=== PATIENT | male | born 1965 | race Caucasian/White ===

== ENCOUNTER 2017-09-19 17:03 | Emergency (ER) | payer OTHER ==
[~2017-09-19] VITALS: Ht 185.4 cm; Wt 72.6 kg
[2017-09-19 17:12] VITALS: BP 108/82
[2017-09-19] MEDS ORDERED: ACCUNEB SO1.25 MG/1 INH (17:14)
[2017-09-19] MEDS ORDERED: FLEXERIL PO (17:24)
[2017-09-19] MEDS ORDERED: NORCO 5-325 TA1 EACH PO (17:24)
== END 2017-09-19 17:37 | disposition home or self-care (01) ==
LOC: M.ERS 17:03
DX: S39.012A Strain of muscle, fascia and tendon of lower back, initial encounter (principal); X50.1XXA Overexertion from prolonged static or awkward postures, initial encounter; Y93.89 Activity, other specified; Y92.89 Other specified places as the place of occurrence of the external cause; Y99.8 Other external cause status; J45.909 Unspecified asthma, uncomplicated; Z88.6 Allergy status to analgesic agent; Z88.8 Allergy status to other drugs, medicaments and biological substances; Z88.7 Allergy status to serum and vaccine

== ENCOUNTER 2017-10-17 12:29 | Emergency (ER) | payer OTHER ==
[~2017-10-17] VITALS: Ht 185.4 cm; Wt 72.6 kg
[~2017-10-17 12:29] MED LIST: ACCUNEB SO1.25 MG/1 INH; FLEXERIL PO; NORCO 5-325 TA1 EACH PO
[2017-10-17] MEDS ORDERED: NORCO 5-325 TA1 EACH PO (13:39)
[2017-10-17] MEDS ORDERED: KEFLEX500 M1 PO (13:39)
[2017-10-17 13:55] VITALS: BP 129/86
== END 2017-10-17 13:56 | disposition home or self-care (01) ==
LOC: M.ERS 12:29
DX: M25.571 Pain in right ankle and joints of right foot (principal); R21 Rash and other nonspecific skin eruption; J45.909 Unspecified asthma, uncomplicated; Z88.7 Allergy status to serum and vaccine; Z88.8 Allergy status to other drugs, medicaments and biological substances

== ENCOUNTER 2019-04-26 12:33 | Emergency (ER) | payer OTHER, MEDICAID ==
[~2019-04-26] VITALS: Ht 185.4 cm; Wt 73.5 kg
[~2019-04-26 12:33] MED LIST changes: +KEFLEX500 M1 PO
[2019-04-26] MEDS ORDERED: ALBUTEROL2.5 MG/0.1 INH (12:52)
[2019-04-26] MEDS ORDERED: TRAMADOL 50 MG50 MG PO (12:52)
[2019-04-26] MEDS ORDERED: ZANAFLEX2 M1 PO (12:52)
[2019-04-26] MEDS ORDERED: TYLENOL WITH CO1 TA1 PO (13:39)
[2019-04-26 14:06] VITALS: BP 145/96
== END 2019-04-26 14:06 | disposition home or self-care (01) ==
LOC: M.ERS 12:33
DX: S63.501A Unspecified sprain of right wrist, initial encounter (principal); J45.909 Unspecified asthma, uncomplicated; Z88.7 Allergy status to serum and vaccine; Z88.8 Allergy status to other drugs, medicaments and biological substances; W00.0XXA Fall on same level due to ice and snow, initial encounter; Y93.89 Activity, other specified; Y92.89 Other specified places as the place of occurrence of the external cause; Y99.8 Other external cause status

== ENCOUNTER 2020-02-27 09:56 | Emergency (ER) | payer OTHER, MEDICAID ==
[~2020-02-27] VITALS: Ht 185.4 cm; Wt 69.0 kg
[~2020-02-27 09:56] MED LIST changes: +ALBUTEROL2.5 MG/0.1 INH; +TRAMADOL 50 MG50 MG PO; +TYLENOL WITH CO1 TA1 PO; +ZANAFLEX2 M1 PO
[2020-02-27 10:03] VITALS: BP 129/81
[2020-02-27] MEDS ORDERED: DIPHENHIST50 MG PO (10:28)
[2020-02-27] MEDS ORDERED: PREDNISONE 10 M10 M1 PO (10:28)
== END 2020-02-27 10:32 | disposition home or self-care (01) ==
LOC: M.ERS 09:56
DX: L25.9 Unspecified contact dermatitis, unspecified cause (principal); J45.909 Unspecified asthma, uncomplicated; Z88.7 Allergy status to serum and vaccine; Z88.8 Allergy status to other drugs, medicaments and biological substances

== ENCOUNTER 2020-06-26 14:40 | Emergency (ER) | payer OTHER, MEDICAID ==
[~2020-06-26] VITALS: Ht 185.4 cm; Wt 72.6 kg
[~2020-06-26 14:40] MED LIST changes: +DIPHENHIST50 MG PO; +PREDNISONE 10 M10 M1 PO
[2020-06-26] MEDS ORDERED: KEFLEX500 M1 PO (15:03)
[2020-06-26] MEDS ORDERED: NORCO5 PO (15:03)
[2020-06-26 15:10] VITALS: BP 158/111
== END 2020-06-26 15:11 | disposition home or self-care (01) ==
LOC: M.ERS 14:40
DX: T33.831A Superficial frostbite of right toe(s), initial encounter (principal); J45.909 Unspecified asthma, uncomplicated; Z88.7 Allergy status to serum and vaccine; Z88.8 Allergy status to other drugs, medicaments and biological substances; X31.XXXA Exposure to excessive natural cold, initial encounter; Y93.89 Activity, other specified; Y92.89 Other specified places as the place of occurrence of the external cause; Y99.8 Other external cause status

== ENCOUNTER 2020-08-04 15:19 | Emergency (ER) | payer OTHER, MEDICAID ==
[~2020-08-04] VITALS: Ht 185.4 cm; Wt 74.8 kg
[~2020-08-04 15:19] MED LIST changes: +NORCO5 PO
[2020-08-04 16:10] VITALS: BP 153/93
== END 2020-08-04 16:11 | disposition home or self-care (01) ==
LOC: M.ERS 15:19
DX: B34.9 Viral infection, unspecified (principal); Z20.822 Contact with and (suspected) exposure to COVID-19; J45.909 Unspecified asthma, uncomplicated; Z98.890 Other specified postprocedural states; Z89.021 Acquired absence of right finger(s); Z88.8 Allergy status to other drugs, medicaments and biological substances; Z88.7 Allergy status to serum and vaccine